=== PATIENT | male | born 1940 | race Caucasian/White ===

== ENCOUNTER 2020-08-06 15:03 | Emergency (ER) | payer OTHER, MEDICARE, MEDICAID ==
[~2020-08-06] VITALS: Ht 167.6 cm; Wt 86.8 kg
[~2020-08-06 15:03] MED LIST: ASPI-612 PO; COLC0.6T11 PO; GLIP-126 PO; HCTZ25T PO; HYT1T PO; LISI40TA4 PO; MELO-82 PO; NOR5T PO; NORCO10T PO
--- NOTE | 2020-08-06 15:26 | NUR ---
vasc at bedside
[2020-08-06] MEDS ORDERED: CEPH250T PO (16:05)
[2020-08-06 16:26] VITALS: BP 152/81
== END 2020-08-06 16:28 | disposition home or self-care (01) ==
LOC: ER 15:03
DX: I87.2 Venous insufficiency (chronic) (peripheral) (principal); L03.115 Cellulitis of right lower limb; I48.91 Unspecified atrial fibrillation; I10 Essential (primary) hypertension; E11.9 Type 2 diabetes mellitus without complications; M10.9 Gout, unspecified; Z79.82 Long term (current) use of aspirin; Z79.899 Other long term (current) drug therapy
CPT/HCPCS: 93971; 99284